=== PATIENT | female | born 1950 | race Caucasian/White ===

== ENCOUNTER 2023-06-24 06:04 | Inpatient (IN) | payer MEDICARE ==
[2023-06-24] MEDS ORDERED: dilTIAZem 25 MG/5 ML VIAL ONE (06:22)
[2023-06-24 06:44] LABS: #Eosinphils 0.3 10x3/uL (0.0-0.5); #Monocytes 1.1 10x3/uL (0.0-1.1); #Neutrophils 6.5 10x3/uL (1.5-8.4); %Basophils 0.4 % (0.0-2.0); %Eosinophils 3.7 % (0.0-6.0); %Neutrophils 73.2 % (40.0-75.0); Hematocrit 46.9 % (34.9-44.5); Hemoglobin 16.4 g/dL (12.0-15.5); Mean Corpuscular Hemoglobin 36.5 pg (27.0-33.0); Mean Corpuscular Volume 104.5 fl (81.6-98.3); Mean Platelet Volume 10.1 fl (7.4-10.4); Platelet Count 351 10x3/uL (150-450); RBC Distribution Width 12.4 % (11.5-14.5); Red Blood Cell (RBC) Count 4.49 10x6/uL (3.90-5.03); White Blood Cell (WBC) Count 8.9 10x3/uL (3.5-10.5)
[2023-06-24 06:54] LABS: INR-International Normal Ratio 0.9; PTT 28.8 sec (22.0-33.0)
[2023-06-24 07:01] LABS: ALT (SGPT) 9 U/L (8-55); AST (SGOT) 19 U/L (5-34); Albumin 3.7 g/dL (3.4-4.8); Alkaline Phosphatase 66 U/L (40-110); Anion Gap 17 mmol/L (10-20); BUN (Urea Nitrogen) 16 mg/dL (9.8-20.1); Bilirubin, Total 0.6 mg/dL (0.2-1.2); Calc. Creatinine Clearance 0 mL/min (70-130); Calcium 9.3 mg/dL (7.8-10.44); Carbon Dioxide 24 mmol/L (23-31); Chloride 95 mmol/L (98-107); Estimated GFR 66; Globulin 3.2 g/dL (2.4-3.5); Glucose 97 mg/dL (83-110); Potassium 4.1 mmol/L (3.5-5.1); Protein, Total 6.9 g/dL (5.8-8.1); Sodium 132 mmol/L (136-145)
[2023-06-24 07:07] LABS: Troponin I Less than 0.010 ng/mL (< 0.028)
[2023-06-24 07:17] LABS: CRP (Inflammatory) 17.93 mg/dL (= or < 0.5); Lipase 16 U/L (8-78); Magnesium 1.7 mg/dL (1.6-2.6)
[2023-06-24 08:05] LABS: SARS-CoV-2 NAA Rapid Test Not Detected (NotDetected)
[2023-06-24] MEDS ORDERED: methylPREDNISolone Sod Succ/PF 125 MG/2 ML VIAL ONE (08:40)
[2023-06-24] MEDS ORDERED: Ipratropium/Albuterol 3 ML NEB ONE ×3 (09:00→18:59)
[2023-06-24] MEDS ORDERED: Acetaminophen 325 MG TAB PO PRN (09:55)
[2023-06-24] MEDS ORDERED: Guaifenesin DM 100-10/5 ML UDCUP PO PRN (09:55)
[2023-06-24] MEDS ORDERED: Senokot S 8.6-50 MG TAB PO PRN (09:55)
[2023-06-24] MEDS ORDERED: Magnesium 2 GM/50 ML BAG (IN WATER) ONE (11:01)
[2023-06-24] MEDS: dilTIAZem CD 120 MG CAP PO SCH (11:08)
[2023-06-24] MEDS: Magnesium 2 GM/50 ML(in water) 2 GM in Premix 1 BAG IVPB SCH (11:08)
[2023-06-24] MEDS: Ipratropium/Albuterol 3 ML NEB NEB SCH (14:04)
[2023-06-24] MEDS ORDERED: methylPREDNISolone Sod Succ 40 MG VIAL ONE (15:25)
[2023-06-24] MEDS: methylPREDNISolone Sod Succ 40 MG VIAL IVP SCH (15:43)
[2023-06-24 19:28] LABS: Bilirubin Neg (Negative); Blood, Urine 10 (Negative); Clarity Clear (Clear); Glucose, Urine (Dipstick) Normal (Negative); Ketone, Urine Negative (Negative); Leukocyte Negative (Negative); Nitrite Negative (Negative); Protein, Urine (Dipstick) Negative (Neg-Trace); Specific Gravity, Urine 1.015 (1.005-1.030); Urobilinogen Normal mg/dL (Less than 2)
[2023-06-24 19:41] LABS: Bacteria/HPF None Seen HPF (None Seen); CAUTI Indications for Culture Pelvic or flank pain; RBC/HPF 0-3 HPF (0-3); Squamous Epithelial 0-3 HPF (0-3); Urine Culture Reflex No No; WBC/HPF 0-3 HPF (0-3)
[2023-06-24 20:18] LABS: Hemoglobin A1c 5.4 % (4.0-6.0)
[2023-06-24 21:24] VITALS: BMI 21.5
[2023-06-24] MEDS: Enoxaparin 60 MG (0.6 mL) SYRINGE SC SCH (21:50)
[2023-06-25] MEDS: diphenhydrAMINE 25 MG CAP PO SCH (01:21)
[2023-06-25 03:09] LABS: #Monocytes 0.2 10x3/uL (0.0-1.1); #Neutrophils 4.1 10x3/uL (1.5-8.4); %Basophils 0.2 % (0.0-2.0); %Monocytes 4.1 % (0.0-10.0); %Neutrophils 84.1 % (40.0-75.0); Hematocrit 41.9 % (34.9-44.5); Hemoglobin 14.5 g/dL (12.0-15.5); Mean Corpuscular HGB CONC 34.6 g/dL (32.0-36.0); Mean Corpuscular Hemoglobin 35.8 pg (27.0-33.0); Mean Corpuscular Volume 103.5 fl (81.6-98.3); Mean Platelet Volume 9.9 fl (7.4-10.4); Platelet Count 347 10x3/uL (150-450); RBC Distribution Width 12.2 % (11.5-14.5); Red Blood Cell (RBC) Count 4.05 10x6/uL (3.90-5.03); White Blood Cell (WBC) Count 4.9 10x3/uL (3.5-10.5)
[2023-06-25 03:55] LABS: Anion Gap 15 mmol/L (10-20); BUN (Urea Nitrogen) 20 mg/dL (9.8-20.1); Calc. Creatinine Clearance 45 mL/min (70-130); Calcium 8.6 mg/dL (7.8-10.44); Carbon Dioxide 21 mmol/L (23-31); Cardiac Risk 2.9 (Less than 4.5); Chloride 102 mmol/L (98-107); Cholesterol 157 mg/dl (< 200 Desired); Estimated GFR 65; Glucose 178 mg/dL (83-110); HDL Cholesterol 54 mg/dL (>60 Neg Risk); LDL Cholesterol, Calculated 78 mg/dL; Potassium 3.7 mmol/L (3.5-5.1); Sodium 134 mmol/L (136-145); Triglycerides 123 mg/dL (Less than 150)
[2023-06-25] MEDS: FLUoxetine HCl 10 MG CAP PO SCH (08:47)
[2023-06-25] MEDS: Enoxaparin 60 MG (0.6 mL) SYRINGE SC SCH (08:47)
[2023-06-25] MEDS: Lisinopril 20 MG TAB PO SCH (08:47)
[2023-06-25] MEDS: Donepezil HCl 5 MG TAB PO SCH (08:48)
[2023-06-25] MEDS: dilTIAZem CD 120 MG CAP PO SCH (08:48)
[2023-06-25] MEDS: Potassium Chloride 20 MEQ TAB PO SCH (09:46)
[2023-06-25 10:05] LABS: Magnesium 2.3 mg/dL (1.6-2.6)
[2023-06-25] MEDS: Metoprolol Tartrate 50 MG TAB PO SCH (20:24)
[2023-06-25] MEDS: Fluticasone Propionate Nasal Spray 16 gm Bottle NASAL SCH (20:25)
[2023-06-25] MEDS: methylPREDNISolone Sod Succ 40 MG VIAL IVP SCH (20:25)
[2023-06-25] MEDS: traZODone HCl 50 MG TAB PO SCH (22:42)
[2023-06-26 04:28] LABS: Anion Gap 13 mmol/L (10-20); BUN (Urea Nitrogen) 25 mg/dL (9.8-20.1); Calc. Creatinine Clearance 46 mL/min (70-130); Calcium 8.4 mg/dL (7.8-10.44); Carbon Dioxide 22 mmol/L (23-31); Chloride 105 mmol/L (98-107); Estimated GFR 67; Glucose 133 mg/dL (83-110); Magnesium 2.3 mg/dL (1.6-2.6); Potassium 4.3 mmol/L (3.5-5.1); Sodium 136 mmol/L (136-145)
[2023-06-26] MEDS: valACYclovir 500 MG TAB PO SCH (09:32)
[2023-06-26 15:33] VITALS: BP 129/79; TEMP 97.6
== END 2023-06-26 17:45 | disposition home or self-care (01) | DRG 189 ==
LOC: CSHERS 06:04 → CSHERHOLD 09:26 → CSHTELE 20:59
PROVIDERS: ADMIT Internal Medicine; ATTEND Nurse Practitioner Acute Care
DX: J96.01 Acute respiratory failure with hypoxia (principal); J44.1 Chronic obstructive pulmonary disease with (acute) exacerbation; Z11.52 Encounter for screening for COVID-19; K21.9 Gastro-esophageal reflux disease without esophagitis; Z79.899 Other long term (current) drug therapy; M19.90 Unspecified osteoarthritis, unspecified site; G40.909 Epilepsy, unspecified, not intractable, without status epilepticus; Z90.710 Acquired absence of both cervix and uterus; Z98.890 Other specified postprocedural states; F17.290 Nicotine dependence, other tobacco product, uncomplicated; I48.0 Paroxysmal atrial fibrillation; E83.42 Hypomagnesemia; I49.1 Atrial premature depolarization; I65.23 Occlusion and stenosis of bilateral carotid arteries; N18.9 Chronic kidney disease, unspecified; E78.5 Hyperlipidemia, unspecified; I12.9 Hypertensive chronic kidney disease with stage 1 through stage 4 chronic kidney disease, or unspecified chronic kidney disease; Z88.5 Allergy status to narcotic agent; F41.9 Anxiety disorder, unspecified; F32.A Depression, unspecified
CPT/HCPCS: 36415; 70450; 70498; 71045; 71260; 80048; 80053; 80061; 81001; 83036; 83605; 83690; 83735; 84443; 84484; 85025; 85610; 85730; 86140; 93005; 93010; 93306; 94640; 94760; 96374; 96375; J1650; J2920; J2930; J3475; J7620

== ENCOUNTER 2023-11-02 09:19 | Inpatient (IN) | payer MEDICARE ==
[2023-11-02] MEDS ORDERED: Aspirin 325 MG TAB ONE (10:02)
[2023-11-02] MEDS ORDERED: Ascorbic Acid 500 mg Chewable Tablet ONE (10:02)
[2023-11-02 10:07] LABS: Hematocrit 42.3 % (34.9-44.5); Hemoglobin 14.7 g/dL (12.0-15.5); Mean Corpuscular HGB CONC 34.8 g/dL (32.0-36.0); Mean Corpuscular Hemoglobin 37.5 pg (27.0-33.0); Mean Corpuscular Volume 107.9 fL (81.6-98.3); Mean Platelet Volume 9.7 fL (7.4-10.4); Platelet Count 275 10x3/uL (150-450); RBC Distribution Width 11.8 % (11.5-14.5); Red Blood Cell (RBC) Count 3.92 10x6/uL (3.90-5.03); White Blood Cell (WBC) Count 5.5 10x3/uL (3.5-10.5)
[2023-11-02 10:13] LABS: Anion Gap 13 mmol/L (10-20); BUN (Urea Nitrogen) 13 mg/dL (9.8-20.1); Calc. Creatinine Clearance 0 mL/min (70-130); Calcium 9.4 mg/dL (7.8-10.44); Carbon Dioxide 24 mmol/L (23-31); Chloride 104 mmol/L (98-107); Estimated GFR 57; Glucose 89 mg/dL (83-110); Potassium 4.4 mmol/L (3.5-5.1); Sodium 137 mmol/L (136-145)
[2023-11-02 10:14] LABS: INR-International Normal Ratio 0.9; PTT 25.6 sec (22.0-33.0); Prothrombin Time 10.3 sec (9.5-12.1)
[2023-11-02 10:15] LABS: Cardiac Risk 2.1 (Less than 4.5)
[2023-11-02] MEDS ORDERED: PHENYLEPHRINE-NS 100 MCG/ML 10 ML SYRINGE ONE (11:56)
[2023-11-02] MEDS ORDERED: Midazolam HCl 2 mg/2 ml Vial ONE (11:56)
[2023-11-02] MEDS ORDERED: fentaNYL 50 mcg/mL 1 mL Vial ONE (11:56)
[2023-11-02] MEDS ORDERED: Atropine Sulfate 1 mg/1 ml Vial ONE ×2 (11:56→12:25)
[2023-11-02] MEDS ORDERED: Heparin 10,000 UNITS/ 10 ML VIAL ONE (11:56)
[2023-11-02] MEDS ORDERED: Lidocaine 1% (PF) 30 ML VIAL ONE (11:57)
[2023-11-02] MEDS ORDERED: Phenylephrine 40 MG/NS 250 ML 0 ML ONE (12:03)
[2023-11-02] MEDS ORDERED: Clopidogrel Bisulfate 300 MG TAB ONE (13:45)
[2023-11-02] MEDS ORDERED: Alendronate Sodium 70 mg Tablet PO SCH (14:00)
[2023-11-02 14:36] VITALS: BMI 21.7
[2023-11-02] MEDS ORDERED: Iopamidol 300 61% 100 ML VIAL FS ONE (15:07)
[2023-11-02] MEDS: Sodium Chloride 0.9% 1,000 ML IV SCH (15:09)
[2023-11-02] MEDS ORDERED: Ventolin HFA Inhaler 60 PUFF INHALER INH PRN (15:23)
[2023-11-02] MEDS: Ipratropium/Albuterol 3 ML NEB NEB SCH (19:30)
[2023-11-02] MEDS: Mometasone 100 MCG/PUFF (1 INHALER) INH SCH (19:30)
[2023-11-02] MEDS ORDERED: Fluticasone Propionate Nasal Spray 16 gm Bottle NASAL SCH (21:00)
[2023-11-02] MEDS ORDERED: Midodrine HCl 5 MG TAB PO PRN (21:06)
[2023-11-02] MEDS: Midodrine HCl 5 MG TAB PO SCH (21:31)
[2023-11-02] MEDS: traZODone HCl 50 MG TAB PO SCH (21:31)
[2023-11-02] MEDS: Acetaminophen 325 MG TAB PO PRN (21:33)
[2023-11-03 05:17] LABS: #Basophils 0.01 10x3/uL (0.0-0.2); #Eosinphils 0.11 10x3/uL (0.0-0.5); #Monocytes 0.41 10x3/uL (0.0-1.1); #Neutrophils 7.85 10x3/uL (1.5-8.4); %Basophils 0.1 % (0.0-2.0); %Eosinophils 1.3 % (0.0-6.0); %Lymphocytes 3.9 % (18.0-47.0); %Monocytes 4.7 % (0.0-10.0); %Neutrophils 89.4 % (40.0-75.0); Hematocrit 36.2 % (34.9-44.5); Hemoglobin 12.1 g/dL (12.0-15.5); Mean Corpuscular HGB CONC 33.4 g/dL (32.0-36.0); Mean Corpuscular Hemoglobin 36.7 pg (27.0-33.0); Mean Corpuscular Volume 109.7 fL (81.6-98.3); Platelet Count 210 10x3/uL (150-450); RBC Distribution Width 12.1 % (11.5-14.5); White Blood Cell (WBC) Count 8.8 10x3/uL (3.5-10.5)
[2023-11-03 05:36] LABS: ALT (SGPT) 10 U/L (8-55); AST (SGOT) 16 U/L (5-34); Alkaline Phosphatase 39 U/L (40-110); Anion Gap 13 mmol/L (10-20); BUN (Urea Nitrogen) 17 mg/dL (9.8-20.1); Bilirubin, Total 0.7 mg/dL (0.2-1.2); Calc. Creatinine Clearance 37 mL/min (70-130); Calcium 8.2 mg/dL (7.8-10.44); Carbon Dioxide 20 mmol/L (23-31); Chloride 108 mmol/L (98-107); Estimated GFR 50; Globulin 2.1 g/dL (2.4-3.5); Glucose 103 mg/dL (83-110); Potassium 4.3 mmol/L (3.5-5.1); Protein, Total 5.1 g/dL (5.8-8.1); Sodium 137 mmol/L (136-145)
[2023-11-03] MEDS: Ezetimibe 10 MG TAB PO SCH (09:35)
[2023-11-03] MEDS: predniSONE 20 MG TAB PO SCH (09:35)
[2023-11-03] MEDS: Budesonide DR 3 MG CAP PO SCH (09:35)
[2023-11-03] MEDS: Aspirin Chewable 81 MG TAB PO SCH (09:35)
[2023-11-03] MEDS: Donepezil HCl 5 MG TAB PO SCH (09:35)
[2023-11-03] MEDS: Clopidogrel Bisulfate 75 MG TAB PO SCH (09:35)
[2023-11-03] MEDS: FLUoxetine HCl 20 MG CAP PO SCH (09:36)
[2023-11-03] MEDS: valACYclovir 500 MG TAB PO SCH (09:37)
[2023-11-03] MEDS: CO Q-10 CAPSULE 50 MG PO SCH (09:37)
[2023-11-03] MEDS: Lisinopril 20 MG TAB PO SCH (10:04)
[2023-11-03 12:31] VITALS: BP 115/60; TEMP 98.2
== END 2023-11-03 12:20 | disposition home or self-care (01) | DRG 36 ==
LOC: CSHSDC 09:19 → CSHTELE 14:48
PROVIDERS: ADMIT Specialist; ATTEND Specialist
PROC: 037K34Z Dilation of Right Internal Carotid Artery with Drug-eluting Intraluminal Device, Percutaneous Approach (ICD-10-PCS; principal; 2023-11-02)
DX: I65.23 Occlusion and stenosis of bilateral carotid arteries (principal); E78.5 Hyperlipidemia, unspecified; I48.0 Paroxysmal atrial fibrillation; J44.9 Chronic obstructive pulmonary disease, unspecified; K21.9 Gastro-esophageal reflux disease without esophagitis; R91.1 Solitary pulmonary nodule; N18.30 Chronic kidney disease, stage 3 unspecified; I12.9 Hypertensive chronic kidney disease with stage 1 through stage 4 chronic kidney disease, or unspecified chronic kidney disease; M81.0 Age-related osteoporosis without current pathological fracture; M19.90 Unspecified osteoarthritis, unspecified site; F17.290 Nicotine dependence, other tobacco product, uncomplicated; I25.118 Atherosclerotic heart disease of native coronary artery with other forms of angina pectoris; H35.30 Unspecified macular degeneration; Z90.710 Acquired absence of both cervix and uterus; Z98.890 Other specified postprocedural states; Z98.1 Arthrodesis status; N28.1 Cyst of kidney, acquired; R35.0 Frequency of micturition
CPT/HCPCS: 36215; 36216; 36222; 36225; 36226; 36415; 37215; 75716; 80048; 80053; 80061; 81001; 85025; 85027; 85347; 85610; 85730; 87086; 93005; 93010; 94640; 94760; 99152; 99153; C1760; C1769; C1876; C1884; C1894; J0461; J1644; J2001; J2250; J3010; J7050; J7512; J7620; Q9967

== ENCOUNTER 2024-05-15 08:06 | Outpatient (CLI) | payer MEDICARE | END 2024-05-15 08:07 | disposition home or self-care (01) | LOC: CSHULT 08:06 | PROVIDERS: ATTEND Physician Assistant Medical | DX: D50.9 Iron deficiency anemia, unspecified (principal); R93.2 Abnormal findings on diagnostic imaging of liver and biliary tract; K74.60 Unspecified cirrhosis of liver | CPT/HCPCS: 76700 ==

== ENCOUNTER 2025-04-07 09:30 | Inpatient (IN) | payer MEDICARE ==
[2025-04-07 10:14] LABS: #Basophils 0.03 10x3/uL (0.0-0.2); #Eosinophils 0.05 10x3/uL (0.0-0.5); #Monocytes 0.99 10x3/uL (0.0-1.1); #Neutrophils 7.50 10x3/uL (1.5-8.4); %Basophils 0.3 % (0.0-2.0); %Eosinophils 0.5 % (0.0-6.0); %Lymphocytes 14.1 % (18.0-47.0); %Monocytes 9.9 % (0.0-10.0); %Neutrophils 74.9 % (40.0-75.0); Hematocrit 41.7 % (34.9-44.5); Hemoglobin 14.1 g/dL (12.0-15.5); Mean Corpuscular Hemoglobin 35.5 pg (27.0-33.0); Mean Corpuscular Volume 105.0 fL (81.6-98.3); Platelet Count 245 10x3/uL (150-450); Red Blood Cell (RBC) Count 3.97 10x6/uL (3.90-5.03); White Blood Cell (WBC) Count 10.01 10x3/uL (3.5-10.5)
[2025-04-07 10:23] LABS: INR-International Normal Ratio 0.9; PTT 23.4 sec (22.0-33.0); Prothrombin Time 10.1 sec (9.5-12.1)
[2025-04-07 10:30] LABS: ALT (SGPT) 12 U/L (Less than 34); AST (SGOT) 17 U/L (11-34); Albumin 4.4 g/dL (3.1-4.5); Alkaline Phosphatase 50 U/L (40-110); Anion Gap 16 mmol/L (10-20); BUN (Urea Nitrogen) 34 mg/dL (9.8-20.1); Bilirubin, Total 0.8 mg/dL (0.3-1.2); Calc. Creatinine Clearance 0 mL/min (70-130); Calcium 10.1 mg/dL (7.8-10.44); Carbon Dioxide 26 mmol/L (23-31); Chloride 100 mmol/L (98-107); Globulin 2.4 g/dL (2.4-3.5); Glucose 99 mg/dL (83-110); Magnesium 2.2 mg/dL (1.6-2.6); Potassium 4.2 mmol/L (3.5-5.1); Sodium 138 mmol/L (136-145)
[2025-04-07 10:36] LABS: Troponin I Less than 0.010 ng/mL (< 0.028)
[2025-04-07] MEDS ORDERED: Iopamidol 370 76% 100 ML VIAL ONE (11:38)
[2025-04-07] MEDS ORDERED: Calcium Carbonate 500 MG ChewTAB PO PRN (14:46)
[2025-04-07] MEDS ORDERED: Ondansetron PF 4 MG/2 ML Vial IVP PRN (14:46)
[2025-04-07 14:47] VITALS: BMI 20.1
[2025-04-07] MEDS ORDERED: Ventolin HFA Inhaler 60 PUFF INHALER INH PRN (15:05)
[2025-04-07] MEDS: Acetaminophen 325 MG TAB PO PRN (21:12)
[2025-04-07] MEDS: levETIRAcetam 500 MG TAB PO SCH (21:13)
[2025-04-08 04:49] LABS: #Basophils Less than 0.03 10x3/uL (0.0-0.2); #Eosinophils 0.23 10x3/uL (0.0-0.5); #Monocytes 0.42 10x3/uL (0.0-1.1); #Neutrophils 4.90 10x3/uL (1.5-8.4); %Basophils 0.3 % (0.0-2.0); %Eosinophils 3.6 % (0.0-6.0); %Lymphocytes 13.6 % (18.0-47.0); %Monocytes 6.5 % (0.0-10.0); %Neutrophils 75.7 % (40.0-75.0); Hematocrit 36.7 % (34.9-44.5); Hemoglobin 12.4 g/dL (12.0-15.5); Mean Corpuscular Hemoglobin 36.0 pg (27.0-33.0); Mean Corpuscular Volume 106.7 fL (81.6-98.3); Platelet Count 203 10x3/uL (150-450); Red Blood Cell (RBC) Count 3.44 10x6/uL (3.90-5.03); White Blood Cell (WBC) Count 6.47 10x3/uL (3.5-10.5)
[2025-04-08 05:05] LABS: Anion Gap 10 mmol/L (10-20); BUN (Urea Nitrogen) 22 mg/dL (9.8-20.1); Calc. Creatinine Clearance 45 mL/min (70-130); Calcium 8.7 mg/dL (7.8-10.44); Carbon Dioxide 28 mmol/L (23-31); Chloride 107 mmol/L (98-107); Glucose 95 mg/dL (83-110); Potassium 3.9 mmol/L (3.5-5.1); Sodium 141 mmol/L (136-145)
[2025-04-08] MEDS: Pantoprazole 40 MG DR.TAB PO SCH (08:11)
[2025-04-08] MEDS: valACYclovir 500 MG TAB PO SCH (10:08)
[2025-04-08 12:02] LABS: Cardiac Risk 4.3 (Less than 4.5); Cholesterol 177.0 mg/dl (< 200 Desired); HDL Cholesterol 41.0 mg/dL (>60 Neg Risk); LDL Cholesterol, Calculated 95.0 mg/dL; Triglycerides 206.0 mg/dL (Less than 150)
[2025-04-09 04:48] LABS: Anion Gap 10 mmol/L (10-20); BUN (Urea Nitrogen) 19 mg/dL (9.8-20.1); Calc. Creatinine Clearance 44 mL/min (70-130); Calcium 8.8 mg/dL (7.8-10.44); Carbon Dioxide 25 mmol/L (23-31); Chloride 106 mmol/L (98-107); Glucose 101 mg/dL (83-110); Magnesium 2.0 mg/dL (1.6-2.6); Potassium 4.0 mmol/L (3.5-5.1); Sodium 137 mmol/L (136-145)
[2025-04-10 11:38] VITALS: BP 156/82; TEMP 97.3
== END 2025-04-10 12:54 | disposition home or self-care (01) | DRG 312 ==
LOC: CSHERS 09:30 → CSHTELE 13:32
PROVIDERS: ADMIT Student in an Organized Health Care Education/Training Program; ATTEND Hospitalist
DX: I95.1 Orthostatic hypotension (principal); F03.94 Unspecified dementia, unspecified severity, with anxiety; Z66 Do not resuscitate; I65.23 Occlusion and stenosis of bilateral carotid arteries; F41.9 Anxiety disorder, unspecified; F32.A Depression, unspecified; I25.10 Atherosclerotic heart disease of native coronary artery without angina pectoris; E78.5 Hyperlipidemia, unspecified; S82.831A Other fracture of upper and lower end of right fibula, initial encounter for closed fracture; G40.909 Epilepsy, unspecified, not intractable, without status epilepticus; M19.90 Unspecified osteoarthritis, unspecified site; K21.9 Gastro-esophageal reflux disease without esophagitis; J44.9 Chronic obstructive pulmonary disease, unspecified; I44.1 Atrioventricular block, second degree; I48.0 Paroxysmal atrial fibrillation; M54.50 Low back pain, unspecified; I12.9 Hypertensive chronic kidney disease with stage 1 through stage 4 chronic kidney disease, or unspecified chronic kidney disease; I34.0 Nonrheumatic mitral (valve) insufficiency; R29.6 Repeated falls; N18.30 Chronic kidney disease, stage 3 unspecified; B02.9 Zoster without complications; Z98.890 Other specified postprocedural states; Z90.710 Acquired absence of both cervix and uterus; Z90.722 Acquired absence of ovaries, bilateral; Z88.5 Allergy status to narcotic agent; Z88.8 Allergy status to other drugs, medicaments and biological substances; Z98.1 Arthrodesis status; Z95.818 Presence of other cardiac implants and grafts
CPT/HCPCS: 29515; 36415; 70496; 70498; 71045; 72170; 80048; 80053; 80061; 80177; 83735; 83880; 84443; 84484; 85025; 85610; 85730; 93005; 93010; 93306; 93880; 94760; 94762; J7030; Q9967